=== PATIENT | female | born 1970 ===

== ENCOUNTER 2017-02-19 18:04 | Emergency (ER) | payer MEDICAID ==
[2017-02-19 18:29] VITALS: RESP 16
[2017-02-19 21:13] LABS: BASO % 0.3 % (0.0-2.0); EOS # 0.1 K/uL (0.0-0.7); EOS % 1.1 % (0.0-4.0); HEMATOCRIT 39.2 % (34.0-47.0); LYMPH # 2.6 K/uL (1.0-4.3); LYMPH % 31.7 % (20.0-40.0); MEAN CELL VOLUME 89.9 fl (81.0-99.0); MEAN CORPUSCULAR HEMOGLOBIN 30.3 pg (27.0-31.0); MEAN CORPUSCULAR HGB CONC 33.7 g/dL (33.0-37.0); MEAN PLATELET VOLUME 11.3 fl (7.2-11.7); MONO # 0.5 K/uL (0.0-0.8); MONO % 5.6 % (0.0-10.0); NEUT % 61.3 % (50.0-75.0); NRBC % 0.2 % (0.0-0.0); RED CELL DISTRIBUTION WIDTH 13.4 % (11.5-14.5); WHITE BLOOD COUNT 8.1 K/uL (4.8-10.8)
[2017-02-19 21:32] LABS: ALB/GLOB RATIO 1.1 (1.0-2.1); ALKALINE PHOSPHATASE 65 U/L (38-126); ALT/SGPT 51 U/L (9-52); AST/SGOT 38 U/L (14-36); BILIRUBIN,TOTAL 0.4 mg/dl (0.2-1.3); BLOOD UREA NITROGEN 12 mg/dl (7-17); CALCIUM 8.9 mg/dL (8.4-10.2); CARBON DIOXIDE 26 mmol/L (22-30); CHLORIDE 104 mmol/L (98-107); GFR AFRICAN-AMERICAN > 60; GLUCOSE,RANDOM 91 mg/dL (65-105); LIPASE 65 U/L (23-300); POTASSIUM 3.4 MMOL/L (3.6-5.0); SODIUM 142 mmol/l (132-148); TOTAL PROTEIN 7.3 G/DL (6.3-8.2)
[2017-02-19 21:42] LABS: RBC URINE 3 /hpf (0-3); URINE BACTERIA RARE (<OCC); URINE BILIRUBIN NEGATIVE (NEGATIVE); URINE BLOOD NEGATIVE (NEGATIVE); URINE COLOR YELLOW (YELLOW); URINE GLUCOSE (UA) NEG (Normal); URINE KETONE NEGATIVE (NEGATIVE); URINE LEUKOCYTE ESTERASE MOD Leu/uL (Negative); URINE PROTEIN NEGATIVE (NEGATIVE); URINE UROBILINOGEN 0.2-1.0 mg/dL (0.2-1.0); WBC URINE 6 /hpf (0-5)
--- NOTE | 2017-02-19 23:00 | ED PDOC ---
HPI: Abdomen Time Seen by Provider: 02/19/17 19:22 Chief Complaint (Nursing): Back Pain History Per: Patient History/Exam Limitations: no limitations Onset/Duration Of Symptoms: Days (x 1 ) Additional Complaint(s): Alyse Choi is a 47 year old female, with a previous medical history of obesity and hypercholesterolemia, who presents to the ED with complaints of abdominal pain persisting for one day. Pt reports pain is localized to the upper abdomen radiating to the back. Pt reports associated symptoms of nausea. Pt denies any vomiting, diarrhea, cough, chest pain or shortness of breath. Pt denies having similar pains in the past. PMD: Dr. Ross Past Medical History Reviewed: Historical Data, Nursing Documentation, Vital Signs Vital Signs: Last Vital Signs Temp 98.2 F 02/19/17 23:15 Pulse 86 02/19/17 23:15 Resp 16 02/19/17 23:15 BP 122/78 02/19/17 23:15 Pulse Ox 99 02/21/17 00:56 - Medical History PMH: Hypercholesterolemia Denies: Alzheimer's Disease, Anxiety, Asthma, Atrial Fibrillation, Bipolar Disorder, Bronchitis, Cardia Arrhythmia, CHF, COPD, Dementia, Depression, Emphysema, HTN, Migraine, Mitral Valve Prolapse, Multiple Sclerosis, Parkinson' s Disease, Peripheral Edema, Pneumonia, Post Traumatic Stress Disorder, Pulmonary Embolism, Chronic Kidney Disease, Schizophrenia, Seizures, Sleep Apnea , TIA - Surgical History Surgical History: Appendectomy (MAY 2015) Denies: Pacemaker - Family History Family History: States: No Known Family Hx - Home Medications Home Medications: Ambulatory Orders Medication Instructions Recorded Ciprofloxacin HCl [Cipro] 500 mg PO BID #0 tab 07/10/15 Doxycycline Hyclate [Doxycycline] 100 mg PO BID #0 tab 07/10/15 Metronidazole [Flagyl] 500 mg PO TID #0 tab 07/10/15 oxyCODONE/Acetaminophen [Percocet 1 tab PO Q8 PRN #0 tab 07/10/15 5/325 mg Tab] Omeprazole 40 mg PO DAILY #30 ecc 09/27/15 oxyCODONE/Acetaminophen [Percocet 1 tab PO Q6H PRN #15 tab 11/12/15 5/325 mg Tab] oxyCODONE/Acetaminophen [Percocet 1 ea PO Q6H PRN #15 tab 03/02/16 5/325 mg Tab] Ciprofloxacin HCl [Cipro] 500 mg PO BID #14 tablet 08/27/16 Phenazopyridine HCl [Pyridium] 100 mg PO BID PRN #6 tablet 08/27/16 oxyCODONE/Acetaminophen [Percocet 1 ea PO Q6 PRN #8 tab 08/27/16 5/325 mg Tab] Ciprofloxacin [Cipro] 500 mg PO Q12 #14 tab 02/20/17 Dicyclomine [Bentyl] 20 mg PO Q12 PRN #20 tab 02/20/17 - Allergies Allergies/Adverse Reactions: Allergies Allergy/AdvReac Type Severity Reaction Status Date / Time No Known Allergies Allergy Verified 09/27/15 14:23 Review of Systems ROS Statement: Except As Marked, All Systems Reviewed And Found Negative Constitutional: Negative for: Fever, Chills Cardiovascular: Negative for: Chest Pain Respiratory: Negative for: Shortness of Breath Gastrointestinal: Positive for: Nausea, Abdominal Pain. Negative for: Vomiting Musculoskeletal: Positive for: Back Pain Physical Exam - Reviewed Nursing Documentation Reviewed: Yes Vital Signs Reviewed: Yes - Physical Exam Appears: Positive for: Well, Non-toxic, No Acute Distress Head Exam: Positive for: ATRAUMATIC, NORMAL INSPECTION, NORMOCEPHALIC Skin: Positive for: Normal Color, Warm, DRY Eye Exam: Positive for: EOMI, Normal appearance, PERRL ENT: Positive for: Normal ENT Inspection Neck: Positive for: Normal, Painless ROM Cardiovascular/Chest: Positive for: Regular Rate, Rhythm Respiratory: Positive for: CNT, Normal Breath Sounds Gastrointestinal/Abdominal: Positive for: Bowel Sounds, Soft, Tenderness (tafoya 's sign ) Back: Positive for: Normal Inspection Extremity: Positive for: Normal ROM Neurologic/Psych: Positive for: Alert, Oriented. Negative for: Motor/Sensory Deficits - Laboratory Results Result Diagrams: 02/19/17 20:20 02/19/17 20:20 - ECG O2 Sat by Pulse Oximetry: 99 (RA) Pulse Ox Interpretation: Normal Medical Decision Making Medical Decision Making: Initial Impression: 47 year old female with RUQ tenderness with nausea Initial Plan: * labs * lipase * urine * toradol * accucheck * urinalysis * US gallbladder * reevaluation 2344: US abdomen impression: Enlarged fatty liver; no gallstones or ductal dilatation Patient was not tender over the gallbladder 0100: Labs reviewed, show no clinically significant abnormalities except urine indicative of UTI. Patient feels improved and is stable for d/c. Dx: UTI, abdominal pain Patient has scheduled f/u w/ PCP in 2 days stable Rx: cipro, bentyl Scribe Attestation: Documented by Seema Ozuna, acting as a scribe for Suleman Ta MD. Provider Scribe Attestation: All medical record entries made by the Scribe were at my direction and personally dictated by me. I have reviewed the chart and agree that the record accurately reflects my personal performance of the history, physical exam, medical decision making, and the department course for this patient. I have also personally directed, reviewed, and agree with the discharge instructions and disposition. Disposition - Clinical Impression Clinical Impression: UTI (lower urinary tract infection) - Patient ED Disposition Is Patient to be Admitted: No Counseled Patient/Family Regarding: Studies Performed, Diagnosis, Need For Followup, Rx Given - Disposition Disposition: Routine/Home Disposition Time: 01:00 Condition: STABLE Prescriptions: Dicyclomine [Bentyl] 20 mg PO Q12 PRN #20 tab PRN Reason: abdominal pain Ciprofloxacin [Cipro] 500 mg PO Q12 #14 tab Instructions: Urinary Tract Infection in Women (ED), Abdominal Pain (ED) Print Language: DJIBOUTIAN
[2017-02-19 23:40] VITALS: BP 122/78; PULSE 86; TEMP 98.2
--- NOTE | 2017-02-19 23:44 | US ---
EXAM: US Abdomen Limited, Right Upper Quadrant. CLINICAL HISTORY: 47 years old, female; Pain; Abdominal pain; Epigastric; Additional info: Abd pain TECHNIQUE: Real-time ultrasound of the right upper quadrant with image documentation. EXAM DATE/TIME: 02/19/2017 8:36 PM COMPARISON: There are no prior studies for comparison. FINDINGS: Liver: There is increased echogenicity to the liver. Liver appears mildly enlarged. There is hepatopedal flow in the main portal vein. Gallbladder: Gallbladder is distended with no stones, sludge or wall thickening. Common bile duct: Common bile duct measures 4.4 mm in diameter. Pancreas: Partial pancreas visualized portion is unremarkable. Right kidney: Right kidney is unremarkable. Aorta: Visualized portions of the aorta and inferior vena cava are unremarkable. IMPRESSION: Enlarged fatty liver; no gallstones or ductal dilatation Patient was not tender over the gallbladder
[2017-02-20 01:05] VITALS: O2SAT 99
== END 2017-02-20 00:30 | disposition home or self-care (01) ==
LOC: H.ER 18:04
DX: R10.13 Epigastric pain (principal); N39.0 Urinary tract infection, site not specified; E78.00 Pure hypercholesterolemia, unspecified

== ENCOUNTER 2017-08-25 12:24 | Emergency (ER) | payer MEDICAID ==
[2017-08-25 12:38] VITALS: BP 123/61; PULSE 76; RESP 16; TEMP 98.2; O2SAT 100
--- NOTE | 2017-08-25 13:43 | ED PDOC ---
Upper Extremity Pain/Injury History Per: Patient History/Exam Limitations: no limitations Onset/Duration Of Symptoms: Hrs Current Symptoms Are (Timing): Still Present Quality: Pressure, "Pain" Exacerbating Factor(s): Movement Additional History Per: Patient Additional Complaint(s): CC: Shoulder Pain HPI: 47 y/o woman w/ pmh of HLD presents to ED with shoulder pain. Right-hand dominant patient reports pain is on left shoulder, started yesterday afternoon at 17:00, no inciting event, pressure in nature, radiating to left neck and left arm, constant, worsened with movement, relieved w/ OTC motrin 400 mg PO for 1-2 hours. Patient denies falls, trauma, headahces, chest pain, SOB, abdominal pain, nausea, vomiting, diarrhea, dysuria, or fever. Patient is non- adherent to cholesterol medication. ROS: 12 points assessed and negative unless otherwise reported in HPI PMD: Dr. Ross allergies: NKDA PMH: HLD meds: atorvastatin (non-adherent) PSH: lap appendectomy 2013 SOC: smokes 1-2 cigarettes/day, denies alcohol and drugs <Collin Vickers - Last Filed: 08/25/17 14:29> <Kal Rodrigues - Last Filed: 08/25/17 17:40> Time Seen by Provider: 08/25/17 13:02 Chief Complaint (Nursing): Upper Extremity Problem/Injury Supervising Attending Note - Supervising Attending Note The Documented history was done by the: Physician Perforator Operator, Attending Physician The documented physical exam was done by the: Physician Perforator Operator, Attending Physician The documented procedures were done by the: Physician Perforator Operator, Attending Physician - Attestation: I have personally seen and examined this patient.: Yes I have fully participated in the care of the patient.: Yes I have reviewed all pertinent clinical information: Yes <Kal Rodrigues - Last Filed: 08/25/17 17:40> Past Medical History Reviewed: Historical Data, Nursing Documentation, Vital Signs Vital Signs: Last Vital Signs Temp 98.2 F 08/25/17 12:32 Pulse 76 08/25/17 12:32 Resp 16 08/25/17 12:32 BP 123/61 08/25/17 12:32 Pulse Ox 100 08/25/17 12:32 - Medical History PMH: Hypercholesterolemia Denies: Alzheimer's Disease, Anxiety, Asthma, Atrial Fibrillation, Bipolar Disorder, Bronchitis, Cardia Arrhythmia, CHF, COPD, Dementia, Depression, Emphysema, HTN, Migraine, Mitral Valve Prolapse, Multiple Sclerosis, Parkinson' s Disease, Peripheral Edema, Pneumonia, Post Traumatic Stress Disorder, Pulmonary Embolism, Chronic Kidney Disease, Schizophrenia, Seizures, Sleep Apnea , TIA - Surgical History Surgical History: Appendectomy (MAY 2015) Denies: Pacemaker - Family History Family History: States: Unknown Family Hx <Collin Vickers - Last Filed: 08/25/17 14:29> Vital Signs: Last Vital Signs Temp 98.2 F 08/25/17 12:32 Pulse 76 08/25/17 12:32 Resp 16 08/25/17 12:32 BP 123/61 08/25/17 12:32 Pulse Ox 100 08/25/17 14:30 <Kal Rodrigues - Last Filed: 08/25/17 17:40> - Home Medications Home Medications: Ambulatory Orders Medication Instructions Recorded Ciprofloxacin HCl [Cipro] 500 mg PO BID #0 tab 07/10/15 Doxycycline Hyclate [Doxycycline] 100 mg PO BID #0 tab 07/10/15 Metronidazole [Flagyl] 500 mg PO TID #0 tab 07/10/15 oxyCODONE/Acetaminophen [Percocet 1 tab PO Q8 PRN #0 tab 07/10/15 5/325 mg Tab] Omeprazole 40 mg PO DAILY #30 ecc 09/27/15 oxyCODONE/Acetaminophen [Percocet 1 tab PO Q6H PRN #15 tab 11/12/15 5/325 mg Tab] oxyCODONE/Acetaminophen [Percocet 1 ea PO Q6H PRN #15 tab 01/30/16 5/325 mg Tab] Ciprofloxacin HCl [Cipro] 500 mg PO BID #14 tablet 08/27/16 Phenazopyridine HCl [Pyridium] 100 mg PO BID PRN #6 tablet 08/27/16 oxyCODONE/Acetaminophen [Percocet 1 ea PO Q6 PRN #8 tab 08/27/16 5/325 mg Tab] Ciprofloxacin [Cipro] 500 mg PO Q12 #14 tab 02/20/17 Dicyclomine [Bentyl] 20 mg PO Q12 PRN #20 tab 02/20/17 Cyclobenzaprine [Cyclobenzaprine 10 mg PO TID #15 tab 08/25/17 HCl] Ibuprofen [Motrin] 600 mg PO Q6 PRN #20 tab 08/25/17 - Allergies Allergies/Adverse Reactions: Allergies Allergy/AdvReac Type Severity Reaction Status Date / Time No Known Allergies Allergy Verified 08/25/17 12:32 Review of Systems ROS Statement: Except As Marked, All Systems Reviewed And Found Negative Constitutional: Negative for: Fever, Chills, Sweats Cardiovascular: Negative for: Chest Pain, Palpitations, Light Headedness Respiratory: Negative for: Cough, Shortness of Breath, SOB with Exertion, Pleuritic Pain, Wheezing Gastrointestinal: Negative for: Nausea, Vomiting, Abdominal Pain, Diarrhea Genitourinary Female: Negative for: Dysuria Musculoskeletal: Positive for: Neck Pain, Shoulder Pain, Arm Pain Skin: Negative for: Rash Neurological: Positive for: Numbness. Negative for: Confusion, Altered Mental Status, Headache, Dizziness <Collin Vickers - Last Filed: 08/25/17 14:29> Physical Exam - Reviewed Nursing Documentation Reviewed: Yes Vital Signs Reviewed: Yes - Physical Exam Appears: Positive for: No Acute Distress Head Exam: Positive for: ATRAUMATIC, NORMAL INSPECTION, NORMOCEPHALIC Skin: Positive for: Normal Color, Warm, Dry Eye Exam: Positive for: EOMI, PERRL Neck: Positive for: Normal, Painless ROM, Supple Cardiovascular/Chest: Positive for: Regular Rate, Rhythm, Chest Non Tender. Negative for: Bradycardia, Tachycardia Respiratory: Positive for: Normal Breath Sounds. Negative for: Decreased Breath Sounds, Accessory Muscle Use, Crackles, Rales, Rhonchi, Wheezing Pulses-Carotid (L): 2+ Pulses-Carotid (R): 2+ Pulses-Radial (L): 2+ Pulses-Radial (R): 2+ Gastrointestinal/Abdominal: Positive for: Normal Exam, Bowel Sounds, Soft. Negative for: Tenderness Extremity: Positive for: Normal ROM, Tenderness (mild posterior shoulder tenderness, no tenderness at the acromium, clavicle, or biceps, Spurling's negative, Olviares negative, Neer's negative, Speed's negative). Negative for: Deformity DTR - Bicep (R): 2+ DTR - Bicep (L): 2+ Neurologic/Psych: Positive for: Alert, cat scanner operator II-XII, Oriented. Negative for: Motor/Sensory Deficits, Aphasia, Facial Droop <Collin Vickers - Last Filed: 08/25/17 14:29> - ECG O2 Sat by Pulse Oximetry: 100 <Rancho,Collintru Pimentel - Last Filed: 08/25/17 14:29> Medical Decision Making Medical Decision Makin47 y/o woman w/ pmh of HLD presents to ED with shoulder pain EKG: NSR, no ST- elevation/depression, no widened QRS, no prolonged QT interval , no prolonged MS segment left shoulder XR: no fracture, dislocation re-evaluate: - patient improved - given flexeril 10 mg PO once - given script for felxeril 10 mg PO TID and motrin 600 mg PO Q6h w/ food wand water Dispo: DC home, scripts for motrin and flexeril, and orthopaedic consult <Collin Vickers - Last Filed: 08/25/17 14:29> Medical Decision Making: EKG HR 69 <Kal Rodrigues - Last Filed: 08/25/17 17:40> Disposition - Patient ED Disposition Is Patient to be Admitted: No Discussed With DrOmega: Kal Rodrigues Counseled Patient/Family Regarding: Studies Performed, Diagnosis, Need For Followup, Rx Given - Disposition Disposition: Routine/Home Disposition Time: 14:29 - POA Present On Arrival: None <Collin Vickers - Last Filed: 08/25/17 14:29> <Kal Rodrigues - Last Filed: 08/25/17 17:40> - Clinical Impression Clinical Impression: Shoulder pain - Disposition Referrals: Martina Delarosa MD [Staff Provider] - Condition: IMPROVED Additional Instructions: Please take medications as prescribed. Follow up with PMD Dr. Ross in 2-3 days. Inquire about referral for ortho for further evaluation of shoulder pain. Prescriptions: Cyclobenzaprine [Cyclobenzaprine HCl] 10 mg PO TID #15 tab Ibuprofen [Motrin] 600 mg PO Q6 PRN #20 tab PRN Reason: Pain, Moderate (4-7) Instructions: Paresthesia (ED), Shoulder Pain (ED)
--- NOTE | 2017-08-25 14:00 | RAD ---
PROCEDURE: Radiographs of the Left Shoulder HISTORY: shoulder pain COMPARISON: No prior. FINDINGS: BONES: Normal. No fracture. No suspicious lytic or blastic changes identified. JOINTS: Normal. Glenohumeral and acromioclavicular joints preserved. No osteoarthritis. SOFT TISSUES: Normal. OTHER FINDINGS: None. IMPRESSION: Normal radiographs of the left shoulder.
--- NOTE | 2017-08-26 10:51 | CARD ---
APPROVED REPORT EKG Measurement Heart [id number] <Conclusion> Normal sinus rhythm Normal ECG
== END 2017-08-25 14:33 | disposition home or self-care (01) ==
LOC: H.ER 12:24
DX: M25.512 Pain in left shoulder (principal); E78.00 Pure hypercholesterolemia, unspecified

== ENCOUNTER 2018-11-04 11:36 | Emergency (ER) | payer OTHER ==
[2018-11-04 12:10] VITALS: O2SAT 98
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
[2018-11-04 14:20] VITALS: BP 122/54; PULSE 84; RESP 18; TEMP 98
--- NOTE | 2018-11-04 15:01 | RAD ---
Date of service: 11/04/2018 PROCEDURE: Right Knee Radiographs. HISTORY: Pain. No history of recent/ related trauma provided COMPARISON: None. FINDINGS: BONES: Normal. No fracture. JOINTS: Normal. No osteoarthritis. JOINT EFFUSION: None. OTHER FINDINGS: None. IMPRESSION: Normal radiographs of the right knee.
== END 2018-11-04 14:23 | disposition home or self-care (01) ==
LOC: H.ER 11:36 → MERGE 11:36 → H.ER 14:23
DX: S83.91XA Sprain of unspecified site of right knee, initial encounter (principal); E78.5 Hyperlipidemia, unspecified

== ENCOUNTER 2018-12-02 10:32 | Emergency (ER) | payer OTHER ==
--- NOTE | 2018-12-02 12:37 | ED PDOC ---
HPI: General Adult Time Seen by Provider: 12/02/18 12:35 Chief Complaint (Nursing): Lower Extremity Problem/Injury Chief Complaint (Provider): right leg/chest pain History Per: Patient (48 y/o female h/o HLD/obesity/family h/o MO concerned regarding right leg pain ongoing and chest pain intermittent. Unable to describe when and how chest pain occurrs. Admits smoking. Denies any falls. Notes right leg pain with numbness in toes. Notes swelling in back of calf and is concerned.) Past Medical History Reviewed: Historical Data, Nursing Documentation, Vital Signs Vital Signs: Last Vital Signs Temp 97.6 F 12/02/18 10:36 Pulse 95 H 12/02/18 10:36 Resp 18 12/02/18 10:36 BP 129/83 12/02/18 10:36 Pulse Ox 99 12/02/18 10:36 - Medical History PMH: Hypercholesterolemia, Hyperlipidemia Denies: Alzheimer's Disease, Anxiety, Asthma, Atrial Fibrillation, Bipolar Disorder, Bronchitis, Cardia Arrhythmia, CHF, COPD, Dementia, Depression, Emphysema, HTN, Migraine, Mitral Valve Prolapse, Multiple Sclerosis, Parkinson's Disease, Peripheral Edema, Pneumonia, Post Traumatic Stress Disorder, Pulmonary Embolism, Chronic Kidney Disease, Schizophrenia, Seizures, Sleep Apnea, TIA - Surgical History Surgical History: Appendectomy (MAY 2015) Denies: Pacemaker - Family History Family History: States: Unknown Family Hx - Home Medications Home Medications: Ambulatory Orders Medication Instructions Recorded Ciprofloxacin HCl [Cipro] 500 mg PO BID #0 tab 07/10/15 Doxycycline Hyclate [Doxycycline] 100 mg PO BID #0 tab 07/10/15 Metronidazole [Flagyl] 500 mg PO TID #0 tab 07/10/15 oxyCODONE/Acetaminophen [Percocet 1 tab PO Q8 PRN #0 tab 07/10/15 5/325 mg Tab] Omeprazole 40 mg PO DAILY #30 ecc 09/27/15 oxyCODONE/Acetaminophen [Percocet 1 tab PO Q6H PRN #15 tab 11/12/15 5/325 mg Tab] oxyCODONE/Acetaminophen [Percocet 1 ea PO Q6H PRN #15 tab 01/30/16 5/325 mg Tab] Ciprofloxacin HCl [Cipro] 500 mg PO BID #14 tablet 08/27/16 Phenazopyridine HCl [Pyridium] 100 mg PO BID PRN #6 tablet 08/27/16 oxyCODONE/Acetaminophen [Percocet 1 ea PO Q6 PRN #8 tab 08/27/16 5/325 mg Tab] Ciprofloxacin [Cipro] 500 mg PO Q12 #14 tab 02/20/17 Dicyclomine [Bentyl] 20 mg PO Q12 PRN #20 tab 02/20/17 Cyclobenzaprine [Cyclobenzaprine 10 mg PO TID #15 tab 08/25/17 HCl] Ibuprofen [Motrin] 600 mg PO Q6 PRN #20 tab 08/25/17 Ibuprofen [Motrin Tab] 800 mg PO Q8 PRN #20 tab 11/04/18 traMADol [Ultram] 50 mg PO TID PRN #15 tab 11/04/18 Naproxen 375 mg PO Q8 PRN #21 tablet 12/02/18 - Allergies Allergies/Adverse Reactions: Allergies Allergy/AdvReac Type Severity Reaction Status Date / Time No Known Allergies Allergy Verified 11/05/18 07:56 Review of Systems ROS Statement: Except As Marked, All Systems Reviewed And Found Negative Physical Exam - Reviewed Nursing Documentation Reviewed: Yes Vital Signs Reviewed: Yes - Physical Exam Appears: Positive for: Well, Non-toxic, No Acute Distress Head Exam: Positive for: ATRAUMATIC, NORMAL INSPECTION, NORMOCEPHALIC Skin: Positive for: Normal Color, Warm, DRY Eye Exam: Positive for: EOMI, Normal appearance, PERRL ENT: Positive for: Normal ENT Inspection Neck: Positive for: Normal, Painless ROM Cardiovascular/Chest: Positive for: Regular Rate, Rhythm. Negative for: Chest Non Tender (reproducible chest pain) Respiratory: Positive for: CNT, Normal Breath Sounds Gastrointestinal/Abdominal: Positive for: Normal Exam, Soft Back: Positive for: Normal Inspection Extremity: Positive for: Normal ROM, Swelling (right lower extremity swelling), Other (varicose veins.) Neurologic/Psych: Positive for: Alert, Oriented - Laboratory Results Result Diagrams: 12/02/18 14:14 12/02/18 14:14 - ECG O2 Sat by Pulse Oximetry: 99 - Progress ED Course And Treament: Toradol 60 mg IM x 1 dose EKG: HR 72BPM; NO ECTOPY NO ACUTE CHANGES CXR: NAD DUPLEX RIGHT LEG: NEG DVT Disposition - Clinical Impression Clinical Impression: Sciatica, Chest pain - Patient ED Disposition Is Patient to be Admitted: No - Disposition Referrals: [facility] [Outside] Disposition: Routine/Home Disposition Time: 16:08 Condition: FAIR Prescriptions: Naproxen 375 mg PO Q8 PRN #21 tablet PRN Reason: Pain, Moderate (4-7) Instructions: Chest Pain, Sciatica Forms: [facility] ED School/Work Excuse Print Language: GUAMANIAN
[2018-12-02 13:03] VITALS: RESP 18
--- NOTE | 2018-12-02 14:02 | RAD ---
Date of service: 12/02/2018 HISTORY: routine COMPARISON: 12/05/2012 TECHNIQUE: Chest PA and lateral FINDINGS: LUNGS: No active pulmonary disease. PLEURA: No significant pleural effusion identified. No pneumothorax apparent. CARDIOVASCULAR: No aortic atherosclerotic calcification present. Normal cardiac size. No pulmonary vascular congestion. OSSEOUS STRUCTURES: No significant abnormalities. VISUALIZED UPPER ABDOMEN: Normal. OTHER FINDINGS: None. IMPRESSION: No active disease. No significant interval change compared to the prior examination(s).
[2018-12-02 14:23] LABS: BASO % 0.7 % (0.0-2.0); EOS # 0.1 K/uL (0.0-0.7); EOS % 1.2 % (0.0-4.0); HEMOGLOBIN 13.6 g/dL (12.0-16.0); LYMPH # 2.3 K/uL (1.0-4.3); LYMPH % 32.4 % (20.0-40.0); MEAN CELL VOLUME 91.8 fl (81.0-99.0); MEAN CORPUSCULAR HEMOGLOBIN 30.7 pg (27.0-31.0); MEAN CORPUSCULAR HGB CONC 33.5 g/dL (33.0-37.0); MEAN PLATELET VOLUME 11.6 fl (7.2-11.7); MONO # 0.4 K/uL (0.0-0.8); MONO % 5.9 % (0.0-10.0); NEUT # 4.3 K/uL (1.8-7.0); NEUT % 59.8 % (50.0-75.0); NRBC % 0.2 % (0.0-0.0); RBC 4.42 Mil/uL (3.80-5.20); WHITE BLOOD COUNT 7.2 K/uL (4.8-10.8)
[2018-12-02 14:27] LABS: ALB/GLOB RATIO 1.1 (1.0-2.1); ALT/SGPT 61 U/L (9-52); AST/SGOT 47 U/L (14-36); BLOOD UREA NITROGEN 17 mg/dl (7-17); CALCIUM 9.2 mg/dL (8.4-10.2); GFR NON-AFRICAN AMERICAN > 60
--- NOTE | 2018-12-02 15:06 | US ---
Date of service: 12/02/2018 PROCEDURE: Right lower extremity venous duplex Doppler. HISTORY: r/o dvt COMPARISON: None available. TECHNIQUE: Common femoral, superficial femoral, popliteal and posterior tibial veins were evaluated. Flow was assessed with color Doppler, compressibility, assessment of phasic flow and augmentation response. FINDINGS: COMMON FEMORAL VEIN: Unremarkable. SUPERFICIAL FEMORAL VEIN: Unremarkable. POPLITEAL VEIN: Unremarkable. POSTERIOR TIBIAL VEIN: Unremarkable. OTHER FINDINGS: None. IMPRESSION: No evidence of deep venous thrombosis in the right lower extremity.
[2018-12-02 16:31] VITALS: BP 108/60; PULSE 70; TEMP 98; O2SAT 98
--- NOTE | 2018-12-02 22:27 | CARD ---
APPROVED REPORT Date of service: 12/02/2018 EKG Measurement Heart [id number] <Conclusion> Normal sinus rhythm Normal ECG
== END 2018-12-02 16:30 | disposition home or self-care (01) ==
LOC: H.ER 10:32
DX: R07.89 Other chest pain (principal); M54.31 Sciatica, right side; E66.9 Obesity, unspecified; E78.00 Pure hypercholesterolemia, unspecified; I25.2 Old myocardial infarction